=== PATIENT | male | born 1970 ===

== ENCOUNTER 2017-05-09 09:33 | Outpatient (CLI) | payer BC ==
--- NOTE | 2017-05-09 15:18 | NM ---
NUCLEAR MEDICINE HEPATOBILIARY SCAN: HISTORY: A 46-year-old male with generalized abdominal pain. TECHNIQUE: [id number] dose: 5.2 mCi Ensure (fatty meal) dose: 8 oz. [id number] injected IV. Dynamic anterior scintigraphy of abdomen for 1 hour. Fatty meal given. Additional dynamic anterior scintigraphy of abdomen. Counts obtained over gallbladder. Time-activi ty curve generated. FINDINGS: There is normal uptake and washout of radiopharmaceutical agent from the liver. The gallbladder jose ls normally. Bowel activity is visualized at an appropriate time. The gallbladder ejection fractio n is normal: 81%. IMPRESSION: Normal. jn [] POS: AG
== END 2017-05-09 09:34 | disposition home or self-care (01) ==
LOC: NM 09:33
PROVIDERS: ATTEND Family Medicine
DX: R10.84 Generalized abdominal pain (principal)
CPT/HCPCS: 78227; A9537